=== PATIENT | male | born 1965 | race Caucasian/White ===

== ENCOUNTER 2016-10-25 11:44 | Inpatient (IN) | payer BC, OTHER ==
[2016-10-25] MEDS ORDERED: LIDOCAINE 1%-EPI 1:100000 20 ML MDV ONE (13:52)
[2016-10-25] MEDS ORDERED: HYDROmorphone 1 MG/ML SYRINGE ONE ×2 (13:56→14:58)
[2016-10-25] MEDS ORDERED: HYDROmorphone 1 MG/ML SYRINGE IVP STA ×2 (14:05→14:48)
[2016-10-25] MEDS ORDERED: KETOROLAC 60 MG/2 ML VIAL IVP STA (14:48)
[2016-10-25] MEDS ORDERED: KETOROLAC 30 MG/ML VIAL ONE (14:58)
[2016-10-25] MEDS ORDERED: LACTATED RINGERS 1,000 ML IV ONE ×2 (19:31→20:28)
[2016-10-25] MEDS ORDERED: LIDOCAINE-MPF 2% 5 ML VIAL IM ONE (20:00)
[2016-10-25] MEDS ORDERED: DEXAMETHASONE 4 MG/ML VIAL IVP ONE (20:00)
[2016-10-25] MEDS ORDERED: KETOROLAC 30 MG/ML VIAL IVP ONE (20:00)
[2016-10-25] MEDS ORDERED: ONDANSETRON 4 MG/2 ML VIAL IVP ONE (20:00)
[2016-10-25] MEDS ORDERED: PROPOFOL 200 MG/20 ML VIAL IVP ONE (20:00)
[2016-10-25] MEDS ORDERED: ACETAMINOPHEN 1,000 MG/100 ML VIAL IV ONE (20:00)
[2016-10-25] MEDS ORDERED: VANCOMYCIN 1 GM VIAL ONE (20:44)
[2016-10-25] MEDS ORDERED: ACETAMINOPHEN 325 MG TABLET PO PRN ×2 (20:48→21:06)
[2016-10-25] MEDS ORDERED: ONDANSETRON 4 MG/2 ML VIAL IVP PRN ×2 (20:48→21:06)
[2016-10-25] MEDS ORDERED: PROCHLORPERAZINE 10 MG/2 ML VIAL IVP PRN ×2 (20:48→21:06)
[2016-10-25] MEDS ORDERED: SODIUM CHLORIDE FLUSH 0.9% 10 ML SYRINGE IVP PRN (20:48)
[2016-10-25] MEDS ORDERED: EPINEPHrine 1 MG/ML AMP IR ONE (20:48)
[2016-10-25] MEDS ORDERED: VANCOMYCIN PER PHARMACY 1 GM in SODIUM CHLORIDE 0.9% 250 ML IV SCH (21:00)
[2016-10-25] MEDS ORDERED: VANCOMYCIN WEIGHT BASED (PHA COMPOUNDING) IV ONE (21:06)
[2016-10-25] MEDS ORDERED: SODIUM CHLORIDE FLUSH 0.9% 10 ML SYRINGE IVP SCH (22:00)
[2016-10-25] MEDS: SODIUM CHLORIDE FLUSH 0.9% 10 ML SYRINGE IVP SCH (22:57)
[2016-10-25] MEDS: SODIUM CHLORIDE FLUSH 0.9% 10 ML SYRINGE IVP PRN (23:10)
[2016-10-25] MEDS: HYDROmorphone 1 MG/ML SYRINGE IVP PRN (23:10)
[2016-10-25] MEDS ORDERED: cefTRIAXone 2 GM in SODIUM CHLORIDE 0.9% MINIBAG 100 ML IV SCH (23:30)
[2016-10-26] MEDS ORDERED: VANCOMYCIN INJ 1.75 GM in SODIUM CHLORIDE 0.9% 500 ML IV SCH ×2
[2016-10-26] MEDS: SODIUM CHLORIDE FLUSH 0.9% 10 ML SYRINGE IVP PRN ×7 (00:08→21:08)
[2016-10-26] MEDS: oxyCODONE 5 MG TABLET PO PRN ×6 (00:13→20:01)
[2016-10-26] MEDS: LACTATED RINGERS 1,000 ML IV SCH ×2 (00:42→14:22)
[2016-10-26] MEDS ORDERED: VANCOMYCIN INJ 0.75 GM in SODIUM CHLORIDE 0.9% 250 ML IV SCH (00:45)
[2016-10-26] MEDS: SODIUM CHLORIDE FLUSH 0.9% 10 ML SYRINGE IVP SCH ×3 (06:15→20:01)
[2016-10-26] MEDS: PANTOPRAZOLE 40 MG TABLET PO SCH (06:16)
[2016-10-26] MEDS: HYDROmorphone 1 MG/ML SYRINGE IVP PRN ×6 (07:40→23:47)
[2016-10-26] MEDS: ACETAMINOPHEN 1,000 MG/100 ML 100 ML IV PRN (07:41)
[2016-10-26] MEDS: ASPIRIN 325 MG TABLET PO SCH (08:32)
[2016-10-26] MEDS: POLYETHYLENE GLYCOL 3350 17 GM PACKET PO SCH (08:32)
[2016-10-26] MEDS: KETOROLAC 15 MG/ML VIAL IVP SCH ×2 (09:03→15:00)
[2016-10-26] MEDS ORDERED: SODIUM CHLORIDE 0.9% 500 ML IV ONE (11:06)
[2016-10-26] MEDS ORDERED: VANCOMYCIN 1 GM VIAL ONE (11:06)
[2016-10-26] MEDS ORDERED: VANCOMYCIN 500 MG VIAL ONE (11:06)
[2016-10-26] MEDS: VANCOMYCIN INJ 1 GM, VANCOMYCIN INJ 500 MG in SODIUM CHLORIDE 0.9% 500 ML IV SCH ×2 (11:45→23:47)
[2016-10-26] MEDS ORDERED: VANCOMYCIN INJ 1.5 GM in SODIUM CHLORIDE 0.9% 500 ML IV SCH (12:00)
[2016-10-26] MEDS: ceFAZolin 2 GM in SODIUM CHLORIDE 0.9% MINIBAG 100 ML IV SCH (20:00)
[2016-10-26] MEDS: ZOLPIDEM 5 MG TABLET PO PRN (23:46)
[2016-10-27] MEDS: oxyCODONE 5 MG TABLET PO PRN ×4 (02:14→19:38)
[2016-10-27] MEDS: HYDROmorphone 1 MG/ML SYRINGE IVP PRN ×5 (02:14→23:46)
[2016-10-27] MEDS: ceFAZolin 2 GM in SODIUM CHLORIDE 0.9% MINIBAG 100 ML IV SCH ×3 (03:05→18:47)
[2016-10-27] MEDS: SODIUM CHLORIDE FLUSH 0.9% 10 ML SYRINGE IVP SCH ×5 (05:14→18:47)
[2016-10-27] MEDS ORDERED: ACETAMINOPHEN 325 MG TABLET PO ONE (05:22)
[2016-10-27] MEDS: PANTOPRAZOLE 40 MG TABLET PO SCH (06:20)
[2016-10-27] MEDS: SENNA 8.6 MG TABLET PO SCH (08:49)
[2016-10-27] MEDS: POLYETHYLENE GLYCOL 3350 17 GM PACKET PO SCH (08:50)
[2016-10-27] MEDS: ASPIRIN 325 MG TABLET PO SCH (08:50)
[2016-10-27] MEDS: DOCUSATE SODIUM 250 MG CAPSULE PO SCH (08:50)
[2016-10-27] MEDS: VANCOMYCIN INJ 1 GM, VANCOMYCIN INJ 500 MG in SODIUM CHLORIDE 0.9% 500 ML IV SCH (12:40)
[2016-10-27] MEDS: KETOROLAC 15 MG/ML VIAL IVP SCH (12:42)
[2016-10-27] MEDS: SODIUM CHLORIDE FLUSH 0.9% 10 ML SYRINGE IVP PRN ×3 (15:08→19:38)
[2016-10-27] MEDS: ZOLPIDEM 5 MG TABLET PO PRN (23:46)
[2016-10-27] MEDS: ACETAMINOPHEN 1,000 MG/100 ML 100 ML IV PRN (23:46)
[2016-10-28] MEDS: ceFAZolin 2 GM in SODIUM CHLORIDE 0.9% MINIBAG 100 ML IV SCH (03:00)
[2016-10-28] MEDS: oxyCODONE 5 MG TABLET PO PRN ×3 (06:16→20:10)
[2016-10-28] MEDS: PANTOPRAZOLE 40 MG TABLET PO SCH (06:16)
[2016-10-28] MEDS: HYDROmorphone 1 MG/ML SYRINGE IVP PRN ×4 (08:03→22:30)
[2016-10-28] MEDS: ASPIRIN 325 MG TABLET PO SCH (08:06)
[2016-10-28] MEDS: DOCUSATE SODIUM 250 MG CAPSULE PO SCH (08:06)
[2016-10-28] MEDS: POLYETHYLENE GLYCOL 3350 17 GM PACKET PO SCH (08:07)
[2016-10-28] MEDS: SENNA 8.6 MG TABLET PO SCH (08:07)
[2016-10-28] MEDS: ceFAZolin 2 GM/50 ML 50 ML IV SCH ×2 (11:23→19:58)
[2016-10-28] MEDS ORDERED: LIDOCAINE 2% 10 ML MDV ONE (12:47)
[2016-10-28] MEDS: SODIUM CHLORIDE FLUSH 0.9% 10 ML SYRINGE IVP SCH ×2 (14:35→19:57)
[2016-10-28] MEDS ORDERED: MAGNESIUM CITRATE 296 ML BOTTLE PO ONE (14:45)
[2016-10-28] MEDS: ACETAMINOPHEN 325 MG TABLET PO PRN ×2 (16:11→22:40)
[2016-10-28] MEDS ORDERED: GADOBUTROL 15 MMOL/15 ML VIAL IVP ONE ×2 (18:32)
[2016-10-28] MEDS: SODIUM CHLORIDE FLUSH 0.9% 10 ML SYRINGE IVP PRN (22:39)
[2016-10-29] MEDS: oxyCODONE 5 MG TABLET PO PRN ×7 (00:20→21:58)
[2016-10-29] MEDS: SODIUM CHLORIDE FLUSH 0.9% 10 ML SYRINGE IVP PRN ×5 (03:07→21:53)
[2016-10-29] MEDS: ceFAZolin 2 GM/50 ML 50 ML IV SCH ×3 (03:07→20:16)
[2016-10-29] MEDS: HYDROmorphone 1 MG/ML SYRINGE IVP PRN ×5 (05:56→20:42)
[2016-10-29] MEDS: PANTOPRAZOLE 40 MG TABLET PO SCH (05:57)
[2016-10-29] MEDS: SODIUM CHLORIDE FLUSH 0.9% 10 ML SYRINGE IVP SCH ×3 (05:57→20:29)
[2016-10-29] MEDS: DOCUSATE SODIUM 250 MG CAPSULE PO SCH (09:21)
[2016-10-29] MEDS: SENNA 8.6 MG TABLET PO SCH (09:21)
[2016-10-29] MEDS: ASPIRIN 325 MG TABLET PO SCH (09:21)
[2016-10-29] MEDS: POLYETHYLENE GLYCOL 3350 17 GM PACKET PO SCH (09:24)
[2016-10-29] MEDS: ACETAMINOPHEN 325 MG TABLET PO PRN (16:11)
[2016-10-29] MEDS: SACCHAROMYCES BOULARDII 250 MG CAPSULE PO SCH (18:35)
[2016-10-30] MEDS: SODIUM CHLORIDE FLUSH 0.9% 10 ML SYRINGE IVP PRN ×2 (01:02→03:56)
[2016-10-30] MEDS: HYDROmorphone 1 MG/ML SYRINGE IVP PRN ×3 (01:03→10:14)
[2016-10-30] MEDS: ceFAZolin 2 GM/50 ML 50 ML IV SCH (03:55)
[2016-10-30] MEDS: oxyCODONE 5 MG TABLET PO PRN ×3 (04:06→10:27)
[2016-10-30] MEDS: PANTOPRAZOLE 40 MG TABLET PO SCH (07:45)
[2016-10-30] MEDS: SACCHAROMYCES BOULARDII 250 MG CAPSULE PO SCH (08:14)
[2016-10-30] MEDS: POLYETHYLENE GLYCOL 3350 17 GM PACKET PO SCH (08:14)
[2016-10-30] MEDS: DOCUSATE SODIUM 250 MG CAPSULE PO SCH (08:14)
[2016-10-30] MEDS: SENNA 8.6 MG TABLET PO SCH (08:14)
[2016-10-30] MEDS: ASPIRIN 325 MG TABLET PO SCH (08:14)
[2016-10-30] MEDS: ACETAMINOPHEN 325 MG TABLET PO PRN (08:23)
[2016-10-30] MEDS: SODIUM CHLORIDE FLUSH 0.9% 10 ML SYRINGE IVP SCH (08:26)
[2016-10-30] MEDS ORDERED: ceFAZolin 2 GM/50 ML 50 ML IV SCH (09:00)
== END 2016-10-30 10:49 | disposition home or self-care (01) | DRG 863 ==
PROC: 02HV33Z Insertion of Infusion Device into Superior Vena Cava, Percutaneous Approach (ICD-10-PCS; 2016-10-25)
PROC: 0SBC4ZX Excision of Right Knee Joint, Percutaneous Endoscopic Approach, Diagnostic (ICD-10-PCS; principal; 2016-10-25 18:27)
PROC: 02HV33Z Insertion of Infusion Device into Superior Vena Cava, Percutaneous Approach (ICD-10-PCS; 2016-10-28)
PROC: 0S9C3ZX Drainage of Right Knee Joint, Percutaneous Approach, Diagnostic (ICD-10-PCS; 2016-10-28)
DX: T81.4XXA Infection following a procedure, initial encounter (principal); M00.061 Staphylococcal arthritis, right knee; B95.61 Methicillin susceptible Staphylococcus aureus infection as the cause of diseases classified elsewhere; M17.11 Unilateral primary osteoarthritis, right knee; S82.001S Unspecified fracture of right patella, sequela; V29.9XXS Motorcycle rider (driver) (passenger) injured in unspecified traffic accident, sequela

== ENCOUNTER 2016-11-12 16:45 | Emergency (ER) | payer BC ==
--- NOTE | 2016-11-12 20:12 | ED Physician Documentation ---
History of Present Illness - Stated complaint Stated Complaint: RT ARM PIC LINE PROB - Chief complaint Chief Complaint: General - Additonal information Additional information: hx from pt 51 male has a PICC for IV antibiotics after knee surgery and sepsis PICC infiltrated IV infusions sent pt to ER to have PICC removed and new one placed Review of Systems Constitutional: denies: Fever PD PAST MEDICAL HISTORY - Past Medical History Past Medical History: No Cardiovascular: None Respiratory: None Neuro: None GI: Other HEENT: None Musculoskeletal: Other Derm: None - Past Surgical History Past Surgical History: Yes Ortho: ACL reconstruction, Arthroscopic surgery - Present Medications Home Medications: Ambulatory Orders Medication Instructions Recorded Confirmed CeFAZolin 2 GRAMS/100ML [Ancef 2 2 gm IV Q8HR 11/12/16 11/12/16 Grams/100Ml] oxyCODONE [Roxicodone] 10 mg PO PRN PRN 11/12/16 11/12/16 - Allergies Allergies/Adverse Reactions: Allergies Allergy/AdvReac Type Severity Reaction Status Date / Time Penicillins Allergy Unknown Verified 11/12/16 17:00 - Social History Does the pt smoke?: No Smoking Status: Never smoker Does the pt drink ETOH?: Yes Does the pt have substance abuse?: No - POLST Patient has POLST: No PD ED PE NORMAL - Vitals Vital signs reviewed: Yes - General General: Alert and oriented X 3 - HEENT HEENT: PERRL - Neck Neck: Supple, no meningeal sign - Cardiac Cardiac: RRR, No murmur - Respiratory Respiratory: No respiratory distress, Clear bilaterally - Extremities Extremities: Other (R arm with PICC and dressing and local swelling c/w infiltration but no erythema, pt states he flushed it so should just be saline infiltration) Results - Vitals Vitals: Vital Signs - 24 hr 11/12/16 11/12/16 11/12/16 16:57 18:01 21:26 Temperature 36.4 C L 36.4 C L 36.7 C Heart Rate 98 84 81 Respiratory 16 17 18 Rate Blood Pressure 124/86 H 131/86 H 120/78 O2 Saturation 98 100 100 Oxygen O2 Source Room air PD MEDICAL DECISION MAKING - ED course ED course: old PICC pulled and anesthesia placed a new one Departure - Departure Disposition: 01 Home, Self Care Clinical Impression: PICC line infiltration Condition: Good Comments: Continue your antibiotic infusions as previously scheduled with the new PICC
--- NOTE | 2016-11-12 21:12 | XRAY Preliminary Report ---
Exam: XR Chest for Line Placement IMPRESSION: Distal end of PICC line within right atrium, withdrawal of line 6-7 cm to cavoatrial junc tion recommended. CECILE The above findings were discussed with Edwar by Dr. Prince Christine at 21:11 hrs on 11/12/16. SITE ID: [id number]
--- NOTE | 2016-11-12 21:15 | XRAY Report ---
EXAM: CHEST RADIOGRAPHY EXAM DATE: 11/12/2016 08:52 PM. CLINICAL HISTORY: PICC@L Basilic Vein. COMPARISON: 10/29/2016. TECHNIQUE: 1 view. FINDINGS: Lungs/Pleura: No focal opacities evident. No pleural effusion. No pneumothorax. Mediastinum: Within exam limitations, cardiomediastinal contour is normal. Other: Interval placement of a left upper extremity PICC line. Tip of the catheter is within the righ t atrium and may be withdrawn 6-7 cm to the cavoatrial junction. IMPRESSION: Distal end of PICC line within right atrium, withdrawal of line 6-7 cm to cavoatrial junc tion recommended. CECILE The above findings were discussed with Edwar by Dr. Prince Christine at 21:11 hrs on 11/12/16. Referring Provider Line: [phone] SITE ID: [id number]
[2016-11-12 21:26] VITALS: BP 120/78
== END 2016-11-12 21:45 | disposition home or self-care (01) ==
LOC: ED 16:45
DX: T82.594A Other mechanical complication of infusion catheter, initial encounter (principal)
CPT/HCPCS: 36569; 99282; 99283; C1751; 71010

== ENCOUNTER 2018-08-13 20:40 | Emergency (ER) | payer BC ==
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
[2018-08-13 22:01] VITALS: BP 126/89
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
== END 2018-08-13 22:01 | disposition home or self-care (01) ==
LOC: ED 20:40
DX: S39.012A Strain of muscle, fascia and tendon of lower back, initial encounter (principal); S16.1XXA Strain of muscle, fascia and tendon at neck level, initial encounter; V29.40XA Motorcycle driver injured in collision with unspecified motor vehicles in traffic accident, initial encounter; Y92.411 Interstate highway as the place of occurrence of the external cause
CPT/HCPCS: 72125; 72131; 99283

== ENCOUNTER 2022-05-02 07:42 | Outpatient (CLI) | payer BC, OTHER ==
--- NOTE | 2022-05-04 10:02 | MRI Report ---
PROCEDURE: SHOULDER WO - LT INDICATIONS: ROTATOR CUFF TEAR OR RUPTURE TECHNIQUE: Noncontrast oblique coronal T2 fast spin echo with fat saturation, oblique sagittal T1 spin echo and T2 fast spin echo with fat saturation, axial T1 spin echo and T2 fast spin echo with fat saturation t hrough the shoulder. COMPARISON: None. FINDINGS: Image quality: Excellent. Rotator cuff: Susceptibility artifacts are seen involving distal infraspinatus tendon near its insert ion on humeral head suggests clinical correlation. Low to moderate grade bursal surface partial-thick ness tear involving distal supraspinatus at its insertion on humeral head is seen extending to muscul otendinous junction. Distal infraspinatus tendinosis is noted. Distal subscapularis tendon is intact. No full-thickness rotator cuff tendon rupture. No significant rotator cuff muscle atrophy on sagitta l images. Bones and bursae: There is no marrow edema. No acute fracture or dislocation. Expected postsurgical w idening of acromioclavicular joint is seen. Mild to moderate glenohumeral joint osteoarthritic change s are seen with joint space narrowing and subchondral sclerosis. No significant joint effusion or sub acromial subdeltoid bursal fluid. Capsule and soft tissues: Subtle signal abnormality and contour irregularity involving superior anter ior labrum at 1 to 2:00 position is seen. The long head of the biceps tendon is thickened with intras ubstance T2 hyperintense signal. The rotator interval appears normal, without fibrosis. The coracohu meral ligament is normal in thickness. IMPRESSION: 1. Suggestion of prior rotator cuff tendon repair with post surgical changes and expected postsurgica l widening of acromioclavicular joint. No fracture or dislocation. Mild to moderate glenohumeral join t osteoarthritis. 2. Low to moderate grade bursal surface partial-thickness tear involving distal supraspinatus extendi ng to musculotendinous junction. Distal infraspinatus tendinosis. No full-thickness rotator cuff tend on rupture. 3. Suggestion of subtle superior anterior labral tear at 1 to 2:00 position. 4. Proximal intra-articular portion of long head of biceps tendinosis. Reviewed by: Agustin Leon MD on 05/04/2022 10:00 AM PST Approved by: Agustin Leon MD on 05/04/2022 10:00 AM PST Station ID: [id number]
== END 2022-05-02 07:43 | disposition home or self-care (01) ==
LOC: DI 07:42
PROVIDERS: ATTEND Orthopaedic Surgery
DX: M19.012 Primary osteoarthritis, left shoulder (principal); M75.112 Incomplete rotator cuff tear or rupture of left shoulder, not specified as traumatic; M75.82 Other shoulder lesions, left shoulder

== ENCOUNTER 2022-09-15 07:40 | Outpatient (CLI) | payer BC ==
--- NOTE | 2022-09-15 09:44 | XRAY Report ---
PROCEDURE: Chest 2 View X-Ray INDICATIONS: NIGHT SWEATS, FATIGUE TECHNIQUE: 2 views of the chest were acquired. COMPARISON: Chest x-ray, 11/12/2016. FINDINGS: Surgical changes and devices: None. Lungs and pleura: No pleural effusions or pneumothorax. Lungs are clear. Mediastinum: Mediastinal contours appear normal. Heart size is normal. Bones and chest wall: No suspicious bony lesions. Chronic compression fractures of the upper thorac ic spine. Overlying soft tissues appear unremarkable. IMPRESSION: No acute cardiopulmonary process. Reviewed by: Blaise Casillas MD on 09/15/2022 9:43 AM PDT Approved by: Blaise Casillas MD on 09/15/2022 9:43 AM PDT Station ID: [id number]
== END 2022-09-15 10:13 | disposition home or self-care (01) ==
LOC: DI.S 07:40
PROVIDERS: ATTEND Physician Assistant
DX: R61 Generalized hyperhidrosis (principal); R53.83 Other fatigue
CPT/HCPCS: 36415; 80053; 84443; 85025

== ENCOUNTER 2022-09-15 07:44 | Outpatient (CLI) | payer BC ==
[2022-09-15 14:36] LABS: ALBUMIN 4.2 g/dL (3.2-5.5); ALBUMIN/GLOBULIN RATIO 1.4 (1.0-2.2); BILIRUBIN,TOTAL 0.9 mg/dL (0.2-1.0); CALCIUM 9.5 mg/dL (8.5-10.3); POTASSIUM 4.3 mmol/L (3.5-5.0); TOTAL PROTEIN 7.1 g/dL (6.7-8.2)
[2022-09-15 14:53] LABS: BASOPHILS # (AUTO) 0.1 10^3/uL (0.0-0.1); BASOPHILS % (AUTO) 1.1 %; EOSINOPHILS # (AUTO) 0.1 10^3/uL (0.0-0.7); HCT - HEMATOCRIT 47.3 % (42.0-52.0); HGB - HEMOGLOBIN 16.1 g/dL (14.0-18.0); LYMPHOCYTES # (AUTO) 1.4 10^3/uL (1.5-3.5); LYMPHOCYTES % (AUTO) 30.5 %; MEAN CORPUSCULAR HEMOGLOBIN 31.8 pg (27.0-31.0); MEAN CORPUSCULAR VOLUME 93.5 fL (80.0-94.0); MONOCYTES # (AUTO) 0.5 10^3/uL (0.0-1.0); MONOCYTES % (AUTO) 9.9 %; NEUTROPHILS # (AUTO) 2.5 10^3/uL (1.5-6.6); NEUTROPHILS % (AUTO) 56.1 %; PLT - PLATELET COUNT 242 10^3/uL (130-450); RED BLOOD COUNT 5.06 10^6/uL (4.70-6.10); RED CELL DISTRIBUTION WIDTH 12.8 % (12.0-15.0); WHITE BLOOD COUNT 4.5 x10^3/uL (4.8-10.8)
[2022-09-15 15:04] LABS: THYROID STIMULATING HORMONE 0.98 uIU/mL (0.34-5.60)
== END 2022-09-15 07:45 | disposition home or self-care (01) ==
LOC: LAB.S 07:44
PROVIDERS: ATTEND Physician Assistant
DX: R53.83 Other fatigue (principal); R61 Generalized hyperhidrosis
CPT/HCPCS: 36415; 80053; 84443; 85025

== ENCOUNTER 2022-10-01 15:12 | Outpatient (CLI) | payer BC ==
--- NOTE | 2022-10-01 16:31 | XRAY Report ---
PROCEDURE: Cervical Spine 2 View INDICATIONS: NECK PAIN TECHNIQUE: 3 view(s) of the cervical spine were acquired. COMPARISON: CT cervical spine 08/13/2018. FINDINGS: Bones: No acute fractures or dislocations to the C7. level. Well corticated ossicle posterior to the C6 spinous process. This is unchanged compared to the CT from 2019. Small vertebral body osteophytes . Uncovertebral joint hypertrophy. The lateral masses of C1 appear intact on the odontoid view. No suspicious bony lesions. Soft tissues: No prevertebral soft tissue swelling. IMPRESSION: Moderate degenerative change in the cervical spine. Reviewed by: Sergio Dexter MD on 10/01/2022 4:30 PM PDT Approved by: Sergio Dexter MD on 10/01/2022 4:30 PM PDT Station ID: [id number]
--- NOTE | 2022-10-01 16:33 | XRAY Report ---
PROCEDURE: Thoracic Spine 2 View INDICATIONS: MID BACK PAIN TECHNIQUE: 3 views of the thoracic spine were acquired. COMPARISON: CT cervical and lumbar spine 08/13/2018. FINDINGS: Bones: No fractures or dislocations. No suspicious bony lesions. Small vertebral body osteophytes. 12 pairs of ribs are noted, and appear intact where visualized. Soft tissues: No paravertebral stripe thickening. IMPRESSION: Mild degenerative changes. Reviewed by: Sergio Dexter MD on 10/01/2022 4:32 PM PDT Approved by: Sergio Dexter MD on 10/01/2022 4:32 PM PDT Station ID: [id number]
--- NOTE | 2022-10-01 16:34 | XRAY Report ---
PROCEDURE: Lumbar Spine 2 View INDICATIONS: LOW BACK PAIN TECHNIQUE: 2 views of the lumbar spine were acquired. COMPARISON: Same day thoracic spine radiographs. CT lumbar spine 08/13/2018. FINDINGS: Bones: 5 [id number]-[id number]-[id number] vertebrae are present. Small vertebral body osteophytes. There is normal b asaf alignment. No vertebral body compression fractures. No suspicious bony lesions. Soft tissues: Overlying bowel gas pattern is normal. No suspicious soft tissue calcifications. IMPRESSION: No compression fracture. Mild degenerative changes. Reviewed by: Sergio Dexter MD on 10/01/2022 4:33 PM PDT Approved by: Sergio Dexter MD on 10/01/2022 4:33 PM PDT Station ID: [id number]
== END 2022-10-01 15:13 | disposition home or self-care (01) ==
LOC: DI.S 15:12
PROVIDERS: ATTEND Chiropractor
DX: M47.812 Spondylosis without myelopathy or radiculopathy, cervical region (principal); M47.814 Spondylosis without myelopathy or radiculopathy, thoracic region; M47.816 Spondylosis without myelopathy or radiculopathy, lumbar region

== ENCOUNTER 2023-12-10 08:00 | Outpatient (CLI) | payer BC ==
--- NOTE | 2023-12-10 19:35 | XRAY Report ---
PROCEDURE: Cervical Spine 2-3V INDICATIONS: NECK PAIN/FALL TECHNIQUE: 3 views of the cervical spine were obtained. COMPARISON: None FINDINGS: Bones: Vertebral body height and alignment is maintained. No evidence of traumatic malalignment. Mid cervical spine with anterior osteophytes and arthropathy. Soft tissues: No prevertebral soft tissue swelling. IMPRESSION: Mid cervical spine degenerative disc disease and arthropathy. No fracture or traumatic m alalignment Reviewed by: Jeff Mckeon MD on 12/10/2023 6:34 PM CON Approved by: Jeff Mckeon MD on 12/10/2023 6:34 PM CON Station ID: [id number]
--- NOTE | 2023-12-12 20:15 | XRAY Report ---
PROCEDURE: Thoracic Spine 3V INDICATIONS: THORACIC BACK PAIN/FALL TECHNIQUE: 2 view(s) of the thoracic spine were acquired. COMPARISON: 10/01/2022 FINDINGS: Bones: Upper thoracic spine wedge-shaped compression fractures are unchanged from the prior exam. Nor mal bone mineralization present. Soft tissues: Paravertebral soft tissues are unremarkable IMPRESSION: Stable chronic upper thoracic spine compression fractures, unchanged from 2022 Reviewed by: Jeff Mckeon MD on 12/12/2023 7:13 PM CON Approved by: Jeff Mckeon MD on 12/12/2023 7:13 PM AKDT Station ID: [id number]
== END 2023-12-10 23:59 | disposition home or self-care (01) ==
LOC: DI.S 08:00
PROVIDERS: ATTEND Emergency Medicine
DX: M50.30 Other cervical disc degeneration, unspecified cervical region (principal); M12.88 Other specific arthropathies, not elsewhere classified, other specified site; M48.55XA Collapsed vertebra, not elsewhere classified, thoracolumbar region, initial encounter for fracture

== ENCOUNTER 2023-12-10 10:57 | Emergency (ER) | payer BC ==
--- NOTE | 2023-12-10 13:15 | ED Physician Documentation ---
History of Present Illness - Stated complaint Stated Complaint: NECK INJ - Chief complaint Chief Complaint: Trauma Hd/Nk - Additonal information Additional information: Patient is a 58-year-old male presenting to the emergency department with neck pain. Patient notes he fell in the bathroom hitting his head and chin on the bathroom railing. He notes he lost consciousness it was unwitnessed so unsure exact amount of time he was out. Patient notes he continued to have persistent neck pain since then. He went to the walk-in clinic today due to worsening pain over the last few days and had x-rays performed with concerns for fracture to 5,6,7 cervical vertebrae. Patient was placed in an Spreckels collar and sent over to the emergency department. Patient denies any numbness tingling. He denies any weakness in extremities.Patient denies any other back pain. He does note he has been having some right hip pain as well. PD PAST MEDICAL HISTORY - Past Medical History Cardiovascular: None Respiratory: None GI: Other HEENT: None Musculoskeletal: Other Derm: None - Past Surgical History Past Surgical History: Yes Ortho: ACL reconstruction, Arthroscopic surgery - Present Medications Home Medications: Ambulatory Orders Medication Instructions Recorded Confirmed Cyclobenzaprine [Flexeril] 10 mg PO TID PRN #20 tablet 12/10/23 Lidocaine Patch 5% [Lidoderm Patch] 1 patch TOP DAILY PRN #10 patch 12/10/23 Naproxen 250 mg PO BID PRN #15 tablet 12/10/23 - Allergies Allergies/Adverse Reactions: Allergies Allergy/AdvReac Type Severity Reaction Status Date / Time Penicillins Allergy Unknown Verified 12/10/23 11:13 - Social History Does the pt smoke?: No Smoking Status: Never smoker Does the pt drink ETOH?: No Does the pt have substance abuse?: No - Immunizations Immunizations are current?: Yes - POLST Patient has POLST: No PD ED PE NORMAL - Vitals Vital signs reviewed: Yes - General General: Alert and oriented X 3 - HEENT HEENT: Atraumatic - Neck Neck: Other (Spreckels collar in place deferred exam due to collar in place) - Cardiac Cardiac: RRR, No murmur, No gallop, No rub - Respiratory Respiratory: No respiratory distress, Clear bilaterally - Abdomen Abdomen: Normal bowel sounds, Soft - Derm Derm: Normal color, Warm and dry, No rash - Extremities Extremities: No deformity, No tenderness to palpate - Neuro Neuro: Alert and oriented X 3 Eye Opening: Spontaneous Motor: Obeys Commands Verbal: Oriented GCS Score: 15 Results - Vitals Vitals: Vital Signs - 24 hr 12/10/23 12/10/23 11:04 15:08 Temperature 36.0 C L 36.3 C L Heart Rate 75 74 Respiratory 18 18 Rate Blood Pressure 139/92 H 143/91 H O2 Saturation 98 99 Oxygen O2 Source Room air PD Medical Decision Making - ED course Complexity details: reviewed old records, reviewed results ED course: Patient is a 66-year-old male presenting to the emergency department with neck pain and concern for fracture after he had C-spine x-rays performed at urgent care that showed possible fracture to C5-C7. Patient was sent emergently to ED. Patient was placed in Spreckels collar. Vital stable on arrival. No focal neurodeficits on examination Spreckels collar in place deferred C-spine exam at this time. No other bony tenderness abnormalities of the spine. Additionally right hip shows reproducible lateral right hip tenderness on examination. CT scan of the neck shows no cervical fracture or dislocation. Cervical spondylosis with bilateral areas of bony foraminal narrowing. No acute findings. Additionally patient's CT scan of head showed no acute intracranial pathology. Patient's x-ray of the hip was delayed due to imaging with behind today. X-ray of right hip showed arthritis to right hip but no acute fracture or injury. Discussed with patient reassuring workup. Will send Flexeril and naproxen and lidocaine patches to help with pain at home. Instructed patient of Spreckels collar makes him his neck feel better then he can continue wearing. He most likely has cysts day and a neck sprain/strain. Patient instructed to return with any worsening pain numbness tingling weakness or any other new or worsening symptoms he can return to the emergency department. Departure - Departure Disposition: 01 Home, Self Care Clinical Impression: Neck muscle strain, Right hip pain Instructions: ED Sprain Strain Neck Comments: You were seen here in the emergency department for your neck pain your workup. The emergency department was reassuring have sent to muscle relaxer to your pharmacy to help with your symptoms. He should take ibuprofen and use ice to help with your pain [id number]. If you develop any worsening neck pain numbness tingling in extremities return to the emergency department. Additionally your x-ray of your hip was reassuring as well. No signs of fractures you do have arthritis in that right hip again taking ibuprofen and Tylenol to help with your pain [id number] will help your symptoms Forms: PCP List
--- NOTE | 2023-12-10 14:20 | CT Report ---
PROCEDURE: Head WO INDICATIONS: fall head injury TECHNIQUE: Noncontrast 4.5 mm thick angled axial sections acquired from the foramen magnum to the vertex. For r adiation dose reduction, the following was used: automated exposure control, adjustment of mA and/or kV according to patient size. COMPARISON: None. FINDINGS: Image quality: Excellent. CSF spaces: Basal cisterns are patent. No extra-axial fluid collections. Ventricles are normal in size and shape. Brain: No midline shift. No intracranial masses or hemorrhage. Bear-white matter interface is norm al. Skull and face: Calvarium and visualized facial bones are intact, without suspicious lesions. Sinuses: Visualized sinuses and mastoids are clear. IMPRESSION: No acute intracranial pathology. Reviewed by: Zak Burgess MD on 12/10/2023 2:19 PM PDT Approved by: Zak Burgess MD on 12/10/2023 2:19 PM PDT Station ID: [id number]
[2023-12-10] MEDS: HYDROcod/ACETAM 5/325 MG TABLET PO STA (14:28)
--- NOTE | 2023-12-10 14:53 | CT Report ---
PROCEDURE: Cervical Spine WO INDICATIONS: neck fracture TECHNIQUE: Noncontrast 3 mm thick sections acquired from the skull base to the T4 level. Sagittal and coronal r eformats were then constructed. For radiation dose reduction, the following was used: automated exp osure control, adjustment of mA and/or kV according to patient size. COMPARISON: None. FINDINGS: Image quality: Excellent. Bones: There is a well-corticated bony structure posterior to the spinous processes which may represe nt either a chronic distracted spinous process fracture or heterotopic bone formation which has a suzy y similar appearance to the spinous process. No acute cervical fracture or dislocation. Cervical spon dylosis. Bilateral bony foraminal narrowing at C3-C4 and C6-C7. Visualized superior ribs are intact. Soft tissues: Prevertebral soft tissues are normal in thickness. No paravertebral hematomas. No ap ical pneumothoraces. IMPRESSION: 1. No acute cervical fracture or dislocation. 2. Cervical spondylosis with bilateral areas of bony foraminal narrowing. 3. Findings suggest remote cervical injury. Reviewed by: Zak Burgess MD on 12/10/2023 2:51 PM PDT Approved by: Zak Burgess MD on 12/10/2023 2:51 PM PDT Station ID: [id number]
--- NOTE | 2023-12-10 16:04 | XRAY Report ---
PROCEDURE: Hip w/Pelvis 2-3V RT INDICATIONS: right hip pain TECHNIQUE: An AP view the pelvis and a frog-leg lateral view of the right hip were acquired. COMPARISON: None. FINDINGS: Bones: No fractures or dislocations. Shape of the femoral heads and necks suggest cam-type impingeme nt. There is mild right hip degenerative change and moderate left hip degenerative joint space loss. No suspicious bony lesions. Soft tissues: No suspicious soft tissue calcifications or masses. IMPRESSION: 1. 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 2. No acute bony abnormality of the pelvis and right hip Reviewed by: Zak Burgess MD on 12/10/2023 4:03 PM PDT Approved by: Zak Burgess MD on 12/10/2023 4:03 PM PDT Station ID: [id number]
[2023-12-10 16:34] VITALS: BP 121/89; O2SAT 95
== END 2023-12-10 16:33 | disposition home or self-care (01) ==
LOC: ED 10:57
DX: S16.1XXA Strain of muscle, fascia and tendon at neck level, initial encounter (principal); M25.551 Pain in right hip; W01.198A Fall on same level from slipping, tripping and stumbling with subsequent striking against other object, initial encounter; Y93.E1 Activity, personal bathing and showering; Y92.9 Unspecified place or not applicable
CPT/HCPCS: 70450; 72125; 73502; 99283; 99284; A9270